=== PATIENT | male | born 1980 | race Caucasian/White ===

== ENCOUNTER 2024-05-13 20:48 | Emergency (ER) | payer OTHER ==
[~2024-05-13] VITALS: Ht 188 cm; Wt 97.7 kg
[2024-05-13 21:28] VITALS: TEMP 98.9
[2024-05-13] MEDS: LORazepam 2 MG/ML VIAL IM ONE (22:31)
[2024-05-13] MEDS: DiphenhydrAMINE HCL 50 MG/ML VIAL IM ONE (22:31)
[2024-05-13] MEDS: HALOPERIDOL LACTATE 5 MG/ML VIAL IM ONE (22:31)
[2024-05-14 01:24] VITALS: BP 133/78; PULSE 78; RESP 18; O2SAT 97
[2024-05-14] MEDS ORDERED: LIDOCAINE 1% 10 ML VIAL ONE (02:07)
[2024-05-14] MEDS ORDERED: PERTUSS(ACELL),DIPH,TET/PF 0.5 ML SYRINGE [ADULT] IM. ONE (02:08)
[2024-05-14] MEDS ORDERED: POVIDONE-IODINE 10% 15 ML SOLUTION UD ONE (02:08)
[2024-05-14] MEDS: POVIDONE-IODINE 10% 15 ML SOLUTION UD TP ONE (02:35)
[2024-05-14] MEDS: PERTUSS(ACELL),DIPH,TET/PF 0.5 ML SYRINGE [ADULT] IM. ONE (02:36)
[2024-05-14] MEDS: LIDOCAINE 1% 10 ML VIAL SQ ONE (02:37)
[2024-05-15 08:07] LABS: HEPATITIS C AB (EIA) Non Reactive (Non Reactive)
== END 2024-05-14 03:26 ==
LOC: EDBD 20:48 → EMS 20:48
DX: S20.451A Superficial foreign body of right back wall of thorax, initial encounter (principal); R45.1 Restlessness and agitation; Z23 Encounter for immunization; W45.8XXA Other foreign body or object entering through skin, initial encounter; Y93.89 Activity, other specified; Y92.89 Other specified places as the place of occurrence of the external cause; Y99.8 Other external cause status
CPT/HCPCS: 99291; 10120; 87340; 36415; 86803; 72072; 72100; 96372; 71045; 71046; 90715; 90471; J1200; J1630; J2060; J3490; A4247